=== PATIENT | male | born 1955 | race Caucasian/White ===

== ENCOUNTER → 2018-02-17 | Outpatient (CLI) | payer OTHER ==
[2018-02-17 10:15] LABS: HCT 53.4 % (39.0-53.0); HGB 17.4 gm/dL (13.0-17.5); MCHC 32.7 g/dL (31.0-37.0); MCV 100.9 fL (80.0-100.0); Mean Platelet Volume 8.6; Platelet Count 204 k/uL (150-450); RBC 5.29 m/uL (4.30-5.90); RDW 12.6 % (11.5-15.5); WBC 5.3 k/uL (3.8-10.6)
[2018-02-17 10:30] LABS: ALT 34 U/L (21-72); AST 21 U/L (17-59); Anion Gap 8 mmol/L; Blood Urea Nitrogen 21 mg/dL (9-20); Calcium 9.8 mg/dL (8.4-10.2); Carbon Dioxide 28 mmol/L (22-30); Chloride 103 mmol/L (98-107); Cholesterol 171 mg/dL (<200); Glucose 118 mg/dL (74-99); HDL Cholesterol 58 mg/dL (40-60); LDL Cholesterol,Calculated 99 mg/dL (0-99); Potassium 4.5 mmol/L (3.5-5.1); Sodium 139 mmol/L (137-145); Triglycerides 68 mg/dL (<150)
[2018-02-17 19:42] LABS: Hemoglobin A1C 6.1 % (4.0-6.0)
== END | disposition home or self-care (01) ==
LOC: LABWHC1 09:44
PROVIDERS: ATTEND Family Medicine
DX: E11.9 Type 2 diabetes mellitus without complications (principal); E78.5 Hyperlipidemia, unspecified; R03.0 Elevated blood-pressure reading, without diagnosis of hypertension
CPT/HCPCS: 36415; 80048; 80061; 83036; 84450; 84460; 85027

== ENCOUNTER → 2021-07-24 | Outpatient (CLI) | payer MEDICARE | END | disposition home or self-care (01) | LOC: RADMRIMAIN 07:59 | PROVIDERS: ATTEND Urology | DX: Z53.9 Procedure and treatment not carried out, unspecified reason (principal) ==

== ENCOUNTER → 2021-08-11 | Outpatient (CLI) | payer MEDICARE ==
--- NOTE | 2021-08-17 05:59 | MR ---
EXAMINATION TYPE: MR Prostate wo/w con DATE OF EXAM: 08/11/2021 COMPARISON: None. IMAGE QUALITY: Suboptimal but repeat not required. INDICATION: Prostate cancer history, elevated PSA. Biopsy several years ago. Office cannot get pathol ogy results. PSA: 7.2 ng/ml on June 24, 2021 TECHNIQUE: Examination was performed using a 3T MRI without an endorectal coil. Multiparametric imaging was perf ormed with T2 mutliplanar sequences, axial diffusion weighted imaging and dynamic contrast enhanced i maging, utilizing 12 mL intravenous Gadavist gadolinium contrast. FINDINGS: Exam is suboptimal as patient has motion because of back and hip pain along with inability to hold still from claustrophobia. Exam suboptimal with T2 coronal nonfat saturation imaging are perf ormed. PROSTATE VOLUME: 5.2 cm SI x 5.5 cm AP x 5.9 cm LR Vol= 88.4 cc Predicted PSA equals 10.61 PSA DENSITY: 0.08 ng/ml/cc Enlarged prostate gland consistent with BPH is present. Peripheral zone show some linear and wedge-shaped areas of hypointensity on ADC mapping without areas of marked or more prominent focal hypointensity on ADC mapping or significant increased signal on di ffusion-weighted imaging. Transitional zone shows overall heterogeneity without areas of distinct genaro picious diminished T2 signal. T1-weighted images show some increased signal right mid zone of uncerta in etiology. Prostate capsule is intact. Some of vesicles are within normal limits. Bladder shows adequate distention without suspicious wall thickening or trabeculation. No concerning pelvic fluid collection or adenopathy is seen. Visualized osseous structures are intact. IMPRESSION: Enlarged prostate consistent with BPH. Suboptimal study but a focus of clinically signifi cant cancer is not identified. Highest Assessment Category: 2 MRI Stage: T1c N0 M0 based on review of pelvic images. False negative rates for MRI range from 5-20% depending on risk profile. Assessment Categories: 1 ? Very low (clinically significant cancer is highly unlikely to be present) 2 ? Low (clinically significant cancer is unlikely to be present) 3 ? Intermediate (the presence of clinically significant cancer is equivocal) 4 ? High (clinically significant cancer is likely to be present) 5 ? Very high (clinically significant cancer is highly likely to be present)
== END | disposition home or self-care (01) ==
LOC: RADMRIMAIN 08:30
PROVIDERS: ATTEND Urology
DX: C61 Malignant neoplasm of prostate (principal); N40.0 Benign prostatic hyperplasia without lower urinary tract symptoms
CPT/HCPCS: 72197; A9585